=== PATIENT | female | born 1975 | race African-American/Black ===

== ENCOUNTER 2022-05-31 06:07 | Inpatient (IN) | payer SELFPAY ==
[~2022-05-31] VITALS: Ht 162.6 cm; Wt 59.0 kg
[2022-05-31 07:09] LABS: MEAN CORPUSCULAR HEMOGLOBIN 16.9 pg (28.0-32.0); MEAN CORPUSCULAR VOLUME 56.6 fL (81.0-99.0); MEAN PLATELET VOLUME 9.2 fl (7.4-10.4); PLATELET 286 x1000/uL (130-400); RED BLOOD CELL COUNT 4.07 mill/uL (4.2-5.4)
[2022-05-31 07:13] LABS: HEMOGLOBIN. 6.9 g/dL (12.0-16.0)
[2022-05-31 07:13] LABS: CLARITY URINE CLEAR (CLEAR); COLOR URINE YELLOW (YELLOW); KETONES URINE NEGATIVE (NEGATIVE); LEUKOCYTE ESTERASE URINE NEGATIVE (NEGATIVE); NITRITE URINE NEGATIVE (NEGATIVE); OCCULT BLOOD URINE NEGATIVE (NEGATIVE); PH URINE 7.5 (4.5-8.0); PROTEIN URINE NEGATIVE (NEGATIVE); SPECIFIC GRAVITY URINE 1.012 (1.005-1.030); UROBILINOGEN URINE 0.2 E.U./dL (0.2-1.0)
[2022-05-31 07:15] LABS: UCG SCREEN NEGATIVE
[2022-05-31 07:18] LABS: CHLORIDE 108 mEq/L (98-107)
[2022-05-31 07:20] LABS: INR 1.1; PARTIAL THROMBOPLASTIN TIME 24.8 sec (23.4-31.0); PROTHROMBIN TIME 11.6 sec (9.6-11.0)
[2022-05-31] MEDS ORDERED: LACTATED RINGERS 1,000 ML IV SCH (07:30)
[2022-05-31 07:32] LABS: PLATELET ESTIMATE NORMAL
[2022-05-31] MEDS ORDERED: VASOPRESSIN 20 UNIT/ML 1ML ONE ×2 (07:33→10:36)
[2022-05-31] MEDS ORDERED: SODIUM CHLORIDE 0.9% 1,000 ML IV SCH (07:45)
[2022-05-31] MEDS ORDERED: METHYLENE BLUE 50 MG/10 ML AMP IV ONE (10:38)
[2022-05-31] MEDS ORDERED: TRANEXAMIC ACID 1,000 MG in SODIUM CHLORIDE 0.9% 100 ML IV NR (11:00)
[2022-05-31] MEDS ORDERED: PROPOFOL 200MG/20ML VIAL IV ONE (11:23)
[2022-05-31] MEDS ORDERED: MIDAZOLAM HCL 2 MG/2 ML VIAL ONE (12:30)
[2022-05-31] MEDS ORDERED: ONDANSETRON HCL 4MG/2ML INJ ONE (12:30)
[2022-05-31] MEDS ORDERED: CEFAZOLIN SODIUM 1000MG/VIAL ONE (12:40)
[2022-05-31] MEDS ORDERED: SUCCINYLCHOLINE CHLORIDE 200MG/10ML IV ONE (12:40)
[2022-05-31] MEDS ORDERED: DEXAMETHASONE 4MG/ML 1ML VIAL ONE (12:40)
[2022-05-31] MEDS ORDERED: ROCURONIUM BROMIDE 10MG/ML VIAL 5ML IV ONE (12:41)
[2022-05-31] MEDS ORDERED: GLYCOPYRROLATE 0.2 MG/ML 2ML VIAL ONE (13:00)
[2022-05-31 13:25] LABS: HEMATOCRIT 28.3 % (36.0-48.0); HEMOGLOBIN 8.8 g/dL (12.0-16.0)
[2022-05-31] MEDS ORDERED: HYDROMORPHONE HCL/PF 2MG/ML CPJ ONE (14:11)
[2022-05-31] MEDS ORDERED: ONDANSETRON HCL 4MG/2ML INJ IV PRN ×2 (14:30→16:15)
[2022-05-31] MEDS ORDERED: HYDROMORPHONE HCL/PF 2MG/ML CPJ IV PRN (14:30)
[2022-05-31] MEDS ORDERED: MEPERIDINE HCL/PF 25MG/ML CPJ IV PRN (14:30)
[2022-05-31] MEDS ORDERED: LABETALOL 5MG/ML SYR 20 MG/4 ML SYRINGE IV PRN (14:30)
[2022-05-31] MEDS ORDERED: MORPHINE SULFATE 4 MG/ML CPJ (NOT FOR IM USE) IV PRN (16:15)
[2022-05-31] MEDS ORDERED: NALOXONE HCL 0.4MG/ML VIAL IV PRN (16:30)
[2022-05-31] MEDS ORDERED: IBUPROFEN 600MG TABLET PO PRN (16:45)
[2022-05-31] MEDS ORDERED: ACETAMINOPHEN 500MG TABLET PO PRN (16:45)
[2022-05-31] MEDS ORDERED: MORPHINE SULFATE 2 MG/ML CPJ (NOT FOR IM USE) IV PRN (16:45)
[2022-05-31] MEDS ORDERED: MORPHINE SULFATE 10 MG/ML CPJ IV NR (17:00)
[2022-05-31 20:00] VITALS: BP 122/80
[2022-05-31] MEDS: DEXT 5%/0.45% NACL KCL 20MEQ/L 1,000 ML IV SCH (22:33)
[2022-06-01] VITALS: BP 115/68
[2022-06-01 04:00] VITALS: BP 100/55
[2022-06-01 06:54] LABS: HEMATOCRIT. 26.3 % (36.0-48.0); HEMOGLOBIN. 8.3 g/dL (12.0-16.0); MEAN CORPUSCULAR VOLUME 63.3 fL (81.0-99.0); MEAN PLATELET VOLUME 9.2 fl (7.4-10.4); PLATELET 200 x1000/uL (130-400); RED BLOOD CELL COUNT 4.15 mill/uL (4.2-5.4); RED CELL DISTRIBUTION WIDTH 30.7 % (11.6-14.6)
[2022-06-01 08:00] VITALS: BP 92/55
[2022-06-01 08:07] LABS: CHLORIDE 107 mEq/L (98-107)
[2022-06-01] MEDS: DEXT 5%/0.45% NACL KCL 20MEQ/L 1,000 ML IV SCH (09:05)
[2022-06-01 12:00] VITALS: BP 100/55
[2022-06-01 12:34] LABS: PLATELET ESTIMATE NORMAL
[2022-06-01 16:00] VITALS: BP 95/53
[2022-06-01 16:47] VITALS: BP 100/55
== END 2022-06-01 16:59 | disposition home or self-care (01) | DRG 519 ==
LOC: OR 06:07 → 6EST 19:33
PROVIDERS: ADMIT Obstetrics & Gynecology Obstetrics; ATTEND Obstetrics & Gynecology Obstetrics
PROC: 0UB90ZZ Excision of Uterus, Open Approach (ICD-10-PCS; principal; 2022-05-31)
PROC: 3E0P3GC Introduction of Other Therapeutic Substance into Female Reproductive, Percutaneous Approach (ICD-10-PCS; 2022-05-31)
DX: D25.9 Leiomyoma of uterus, unspecified (principal); D64.9 Anemia, unspecified; N80.03 Adenomyosis of the uterus; Z20.822 Contact with and (suspected) exposure to COVID-19; N73.6 Female pelvic peritoneal adhesions (postinfective); Z79.899 Other long term (current) drug therapy; Z88.8 Allergy status to other drugs, medicaments and biological substances; Z80.9 Family history of malignant neoplasm, unspecified
CPT/HCPCS: 36415; 80048; 81003; 81025; 85014; 85018; 85025; 86850; 86900; 86920; 87426; 88305; C1725; C9803; J0330; J0690; J1100; J1170; J2175; J2250; J2405; J2704; J3490; J7050; P9016; Q9968